=== PATIENT | female | born 1970 | race Caucasian/White ===

== ENCOUNTER 2017-09-16 17:02 | Emergency (ER) | payer OTHER ==
[~2017-09-16] VITALS: Ht 172.7 cm; Wt 101.7 kg
[2017-09-16 17:16] VITALS: TEMP 36.7; Ht 172.7 cm; Wt 101.7 kg
--- NOTE | 2017-09-16 18:54 | EMERGENCY ROOM VISIT NOTE ---
History Report prepared by Ivet: Lashaun Becker Under the Supervision of: Dr. Magno Fulton M.D. First contact with patient: 18:43 Chief Complaint: FALL Stated Complaint: CAN'T SWOLLOW,PASSING OUT,PAIN IN BACK OF HEAD History of Present Illness The patient is a 46 year old female who presents to the Emergency Room with complaints of two sudden episodes of passing out today.The patient states that when she bends down she gets an excruciating pain in the back of her head and reports that both times she passed out today she was bent over cleaning. She reports taking Tylenol for her head pain. The patient also reports having intermittent shortness of breath, fevers, and chills. The patient reports having problems swallowing anything and states that it feels like things get stuck in her throat, and that this has been going on for a month. She reports that she went to the [facility] and was told she may have a hiatal hernia and that she needs a scope down her throat, but that it is not an emergency. She reports that she was at [facility] and was told she has gastritis. She also reports having loss of appetite, weight loss due to loss of appetite, and increased fatigue. She also states that she has had shaking with her symptoms. The patient reports a history of a cholecystectomy an appendectomy, and anemia. Source of History: patient Onset: today Position: other (global) Quality: other (passing out ) Timing: other (sudden ) Associated Symptoms: + fevers, + chills, + headache (back of head pain with bending over), + SOB, + fatigue Note: additional symptoms: loss of appetite, trouble swallowing, shaking Review of Systems See HPI for pertinent positives & negatives. A total of 10 systems reviewed and were otherwise negative. Past Medical & Surgical Surgical Problems: (1) Hx of appendectomy (2) Hx of cholecystectomy Family History No pertinent family history Social History Smoking Status: Never Smoker Marital Status: Current/Historical Medications Scheduled Omeprazole (Prilosec), 20 MG PO DAILY Physical Exam Vital Signs Date Time Temp Pulse Resp B/P (MAP) Pulse Ox O2 Delivery O2 Flow Rate FiO2 09/16/17 21:33 82 18 116/70 96 Room Air 09/16/17 20:43 81 18 128/84 96 Room Air 09/16/17 19:33 78 09/16/17 19:20 72 18 133/96 98 Room Air 09/16/17 19:20 75 133/96 73 140/95 86 124/98 09/16/17 17:16 36.7 90 18 131/90 97 Room Air Physical Exam GENERAL: Patient is in no acute distress. HEENT: No acute trauma, normocephalic atraumatic, mucous membranes moist, no nasal congestion, no scleral icterus. NECK: No stridor, no adenopathy, no meningismus, trachea is midline. No mass felt. LUNGS: Clear to auscultation bilaterally, no wheeze, no rhonchi, breath sounds equal. HEART: Without murmurs gallops or rubs, regular rate and rhythm. ABDOMEN: Soft, mild tenderness in epigastrium, bowel sounds positive, no hernias , no peritonitis. EXTREMITIES: No cyanosis or edema, full range of motion of all the joints without pain or difficulty, no signs for acute trauma. NEUROLOGIC: Oriented x 3, no acute motor or sensory deficits, no focal weakness. SKIN: No rash, no jaundice, no diaphoresis. Medical Decision & Procedures ER Provider Diagnostic Interpretation: Radiology results as stated below per my review and radiologist interpretation: CT HEAD WITHOUT CONTRAST (CT) CLINICAL HISTORY: HEADACHES COMPARISON STUDY: No previous studies for comparison. TECHNIQUE: Axial CT of the brain is performed from the vertex to the skull base. IV contrast was not administered for this examination. A dose lowering technique was utilized adhering to the principles of ALARA. CT DOSE: 537.48 mGy.cm FINDINGS: No intra or extra-axial mass lesions are visualized. There is no CT evidence of acute cortical infarction. There is no evidence of midline shift. There is no acute hemorrhage. No calvarial fractures are visualized. There is no evidence of pathologic ventricular dilatation. There is no evidence of acute sinusitis IMPRESSION: No acute intracranial findings Electronically signed by: Gt Frank M.D. 09/16/2017 8:36 PM Dictated Date/Time: 09/16/2017 8:[address] OF THE CHEST WITH IV CONTRAST CLINICAL HISTORY: Difficulty swallowing. Possible mediastinal mass. COMPARISON STUDY: No previous studies for comparison. TECHNIQUE: Following the IV administration of 119 mL of Optiray-320, CT of the thorax was performed from the thoracic inlet to the lung bases. Images are reviewed in the axial, sagittal, and coronal planes. IV contrast was administered without complication. A dose lowering technique was utilized adhering to the principles of ALARA. CT DOSE: 491.55 mGy.cm FINDINGS: Thyroid: There is a 6 mm left lobe thyroid nodule. Thoracic aorta: The thoracic aorta is normal in course and caliber, noting standard 3-vessel arch anatomy. No aneurysm or dissection is seen. Pulmonary vasculature: The pulmonary trunk is normal in caliber. There are no central filling defects identified to suggest pulmonary embolus. Note that this examination was not protocoled for the evaluation of pulmonary emboli. HEART: The heart is normal in size and configuration, without pericardial effusion. Lungs and pleural spaces: There are no pleural effusions. There is no focal pulmonary consolidation. There is a 4 mm solid right upper lobe pulmonary nodule as visualized in image #72/301. There is a 2 mm calcified granuloma within the left upper lobe. There is a 3 mm. Visual solid right middle lobe pulmonary nodule as visualized in image #116/301. Mediastinum: There is no mediastinal lymphadenopathy. Marina: Clear. Axilla: Clear. Upper abdomen: There is hepatic steatosis. The gallbladder is surgically absent. Skeletal structures: There are no lytic or blastic osseous lesions. IMPRESSION: 1. No evidence of mediastinal mass 2. No evidence of pathologic adenopathy 3. Low suspicion pulmonary nodules, the largest of which measures 4 mm. In a low risk patient, no further follow-up is deemed clinically indicated. Please refer to below summary of Fleischner criteria recommendations for follow-up of incidental CT nodules (Sree Cruz, Guidelines for management of small pulmonary nodules detected on CT scans: A statement from the Fleischner Society, Radiology 237: [phone].) SOLID NODULES Solitary nodule size: <6 mm * low risk patients: no follow-up needed * high risk patients: optional CT at 12 months Solitary nodule size: 6-8 mm * low risk patients: follow-up at 6-12 months, then consider further follow-up at 18-24 months * high risk patients: initial follow-up CT at 6-12 months and then at 18-24 months if no change Solitary nodule size: >8 mm * either low or high risk patients - consider follow-up CT at 3 months, and/or CT-PET, and/or biopsy Multiple nodules size: <6 mm * low risk patients: no routine follow-up * high risk patients: optional CT at 12 months Multiple nodules size: 6-8 mm * low risk patients: follow-up at 3-6 months, then consider further follow-up at 18-24 months * high risk patients: follow-up at 3-6 months, then at 18-24 months if no change Multiple nodules size: >8 mm * low risk patients: follow-up at 3-6 months, then consider further follow-up at 18-24 months * high risk patients: follow-up at 3-6 months, then at 18-24 months if no change Note: newly detected indeterminate nodule in persons 35 years of age or older. * low risk patients: minimal or absent history of smoking and/or other known risk factors * high risk patients: history of smoking or of other known risk factors (e.g. first degree relative with lung cancer, or exposure to asbestos, radon, uranium) * if a nodule up to 8 mm is partly solid or is ground glass further follow-up is required after 24 months to exclude possible slow growing adenocarcinoma (TYRA) SUBSOLID NODULES Solitary pure ground-glass nodule * nodule size <6 mm - no CT follow-up required * nodule size >=6 mm - follow-up CT at 6-12 months, then every 2 years until 5 years Solitary part-solid nodule * nodule size <6 mm - no CT follow-up required * nodule size >=6 mm - follow-up CT at 3-6 months. If unchanged, and solid component remains <6 mm, then annual follow-up for 5 years Multiple subsolid nodules * nodule size <6 mm - follow-up CT at 3-6 months, consider further follow-up at 2 and 4 years if stable * nodule size >=6 mm - follow-up CT at 3-6 months, subsequent management based on the most suspicious nodule(s) Electronically signed by: Gt Frank M.D. 09/16/2017 8:43 PM Dictated Date/Time: 09/16/2017 8:36 PM Laboratory Results 09/16/17 19:18 Red Blood Count 4.61, Mean Corpuscular Volume 89.8, Mean Corpuscular Hemoglobin 31.0, Mean Corpuscular Hemoglobin Concent 34.5, Mean Platelet Volume 9.5, Neutrophils (%) (Auto) 50.0, Lymphocytes (%) (Auto) 37.1, Monocytes (%) (Auto) 9.6, Eosinophils (%) (Auto) 3.0, Basophils (%) (Auto) 0.3, Neutrophils # (Auto) 3.29, Lymphocytes # (Auto) 2.44, Monocytes # (Auto) 0.63, Eosinophils # (Auto) 0.20, Basophils # (Auto) 0.02 09/16/17 19:18 Test 09/16/17 19:18 White Blood Count 6.58 K/uL (4.8-10.8) Red Blood Count 4.61 M/uL (4.2-5.4) Hemoglobin 14.3 g/dL (12.0-16.0) Hematocrit 41.4 % (37-47) Mean Corpuscular Volume 89.8 fL (80-100) Mean Corpuscular Hemoglobin 31.0 pg (25-34) Mean Corpuscular Hemoglobin Concent 34.5 g/dl (32-36) Platelet Count 365 K/uL (130-400) Mean Platelet Volume 9.5 fL (7.4-10.4) Neutrophils (%) (Auto) 50.0 % Lymphocytes (%) (Auto) 37.1 % Monocytes (%) (Auto) 9.6 % Eosinophils (%) (Auto) 3.0 % Basophils (%) (Auto) 0.3 % Neutrophils # (Auto) 3.29 K/uL (1.4-6.5) Lymphocytes # (Auto) 2.44 K/uL (1.2-3.4) Monocytes # (Auto) 0.63 K/uL (0.11-0.59) Eosinophils # (Auto) 0.20 K/uL (0-0.5) Basophils # (Auto) 0.02 K/uL (0-0.2) RDW Standard Deviation 48.6 fL (36.4-46.3) RDW Coefficient of Variation 14.9 % (11.5-14.5) Immature Granulocyte % (Auto) 0.0 % Immature Granulocyte # (Auto) 0.00 K/uL (0.00-0.02) Erythrocyte Sedimentation Rate 45 mm/hr (0-21) Anion Gap 5.0 mmol/L (3-11) Est Creatinine Clear Calc Drug Dose 82.7 ml/min Estimated GFR () 72.9 Estimated GFR (Non- 62.9 BUN/Creatinine Ratio 7.4 (10-20) Calcium Level 9.0 mg/dl (8.5-10.1) Total Bilirubin 0.2 mg/dl (0.2-1) Aspartate Amino Transf (AST/SGOT) 21 U/L (15-37) Alanine Aminotransferase (ALT/SGPT) 37 U/L (12-78) Alkaline Phosphatase 109 U/L (45-117) Troponin I < 0.015 ng/ml (0-0.045) Total Protein 8.8 gm/dl (6.4-8.2) Albumin 3.6 gm/dl (3.4-5.0) Globulin 5.2 gm/dl (2.5-4.0) Albumin/Globulin Ratio 0.7 (0.9-2) Thyroid Stimulating Hormone (TSH) 1.170 uIu/ml (0.300-4.500) Free Thyroxine 0.94 ng/dl (0.80-1.60) Laboratory results reviewed by me. Medications Administered Medications (Trade) Dose Ordered Sig/Isabelle Route Start Time Stop Time Status Last Admin Dose Admin Pantoprazole Sodium (Protonix Tab) 40 mg NOW STAT PO 09/16/17 21:23 09/16/17 21:24 DC 09/16/17 21:30 40 MG ECG Per My Interpretation Indication: syncope Rate (beats per minute): 73 Rhythm: normal sinus Findings: other (no ST elevation, no PVCs) ED Course 1843: The patient was evaluated in room A11B. A complete history and physical exam was performed. 2104: The patient's orthostatic vital signs are negative. 2114: Discussed the patient's case with Dr. Houston. She gave me the number to call for endoscopy. She recommended a PPI. 2119: Reevaluated the patient. Discussed results and discharge instructions: She verbalized understanding and agreement. The patient is ready for discharge. 2122: Ordered Protonix Tab 40 mg PO. Medical Decision The patient is a 46 year old female who presents to the ED with complaints of passing out. Differential diagnoses considered include thyroid disorder, mediastinal mass, thyroid mass, esophageal stricture, anemia, electrolyte imbalance, dehydration, infection, dysrhythmia, orthostasis, and intracranial bleeding . There is no leukocytosis or worrisome anemia. Sed rate is somewhat elevated. No significant electrolyte abnormality, kidney failure or hepatitis. The patient appears to be in a euthyroid state. EKG shows a normal sinus rhythm, no acute ischemia. Cardiac enzyme testing 1 is not consistent with acute cardiac injury. Brain CT shows no acute bleed or mass-effect. Chest CT shows no mediastinal mass, no significant adenopathy. The patient received oral Protonix. I discussed her case with the GI specialist typewriter ribbon winder. The patient is going to be seen for an endoscopy. At this point, the cause for her entire presentation is unclear. She understands to return for any worsening symptoms. In regard to the syncopal spells, these were positional and likely orthostatic. I did do some orthostatic vital signs while she was here, these were negative. The patient was encouraged to stay hydrated. Medication Reconcilliation Current Medication List: was personally reviewed by me Blood Pressure Screening Patient's blood pressure: Normal blood pressure Consults Time Called: 2057 Consulting Physician: Dr. Houston Returned Call: [phone] Discussed the patient's case with Dr. Houston. She gave me the number to call for endoscopy. She recommended a PPI. Impression Primary Impression: Difficulty swallowing Additional Impressions: Headache Syncope Scribe Attestation The scribe's documentation has been prepared under my direction and personally reviewed by me in its entirety. I confirm that the note above accurately reflects all work, treatment, procedures, and medical decision making performed by me. Departure Information Dispostion Home / Self-Care Prescriptions Omeprazole (PRILOSEC) 20 Mg Capcr 20 MG PO DAILY, #30 CAP 3 Refills Prov: Magno Fulton M.D. 09/16/17 Referrals Chris Gan D.O. Forms HOME CARE DOCUMENTATION FORM, IMPORTANT VISIT INFORMATION Patient Instructions My [facility] Additional Instructions stay well hydrated start prilosec daily for the possibility of reflux call Dr. Houston's office to set up the endoscopy return if worsening all lab testing and imaging was ok today as we discussed Problem Qualifiers
[2017-09-16] MEDS ORDERED: OPTIRAY 320 IV PRN (19:00)
[2017-09-16 19:35] LABS: BASO % 0.3 %; BASO ABS # 0.02 K/uL (0-0.2); HEMATOCRIT 41.4 % (37-47); HEMOGLOBIN 14.3 g/dL (12.0-16.0); LYMPH % 37.1 %; LYMPH ABS # 2.44 K/uL (1.2-3.4); MEAN CELL VOLUME 89.8 fL (80-100); MEAN CORPUSCULAR HGB CONC 34.5 g/dl (32-36); MEAN PLATELET VOLUME 9.5 fL (7.4-10.4); MONO % 9.6 %; MONO ABS # 0.63 K/uL (0.11-0.59); NEUT ABS # 3.29 K/uL (1.4-6.5); PLATELET COUNT 365 K/uL (130-400); RED CELL DISTRIBUTION WIDTH CV 14.9 % (11.5-14.5); RED CELL DISTRIBUTION WIDTH SD 48.6 fL (36.4-46.3); WHITE BLOOD COUNT 6.58 K/uL (4.8-10.8)
[2017-09-16 19:56] LABS: BLOOD UREA NITROGEN 8 mg/dl (7-18); CREATININE 1.06 mg/dl (0.60-1.20); GLUCOSE 89 mg/dl (70-99)
[2017-09-16 19:57] LABS: ALBUMIN 3.6 gm/dl (3.4-5.0); ALT/SGPT 37 U/L (12-78); CARBON DIOXIDE 29 mmol/L (21-32); POTASSIUM 3.6 mmol/L (3.5-5.1); SODIUM 137 mmol/L (136-145)
[2017-09-16 20:07] LABS: ALKALINE PHOSPHATASE 109 U/L (45-117); AST/SGOT 21 U/L (15-37); TOTAL PROTEIN 8.8 gm/dl (6.4-8.2)
--- NOTE | 2017-09-16 20:37 | DIAGNOSTIC IMAGING REPORT ---
CT HEAD WITHOUT CONTRAST (CT) CLINICAL HISTORY: HEADACHES COMPARISON STUDY: No previous studies for comparison. TECHNIQUE: Axial CT of the brain is performed from the vertex to the skull base. IV contrast was not administered for this examination. A dose lowering technique was utilized adhering to the principles of ALARA. CT DOSE: 537.48 mGy.cm FINDINGS: No intra or extra-axial mass lesions are visualized. There is no CT evidence of acute cortical infarction. There is no evidence of midline shift. There is no acute hemorrhage. No calvarial fractures are visualized. There is no evidence of pathologic ventricular dilatation. There is no evidence of acute sinusitis IMPRESSION: No acute intracranial findings Electronically signed by: Gt Frank M.D. 09/16/2017 8:36 PM Dictated Date/Time: 09/16/2017 8:35 PM
--- NOTE | 2017-09-16 20:44 | DIAGNOSTIC IMAGING REPORT ---
CT OF THE CHEST WITH IV CONTRAST CLINICAL HISTORY: Difficulty swallowing. Possible mediastinal mass. COMPARISON STUDY: No previous studies for comparison. TECHNIQUE: Following the IV administration of 119 mL of Optiray-320, CT of the thorax was performed from the thoracic inlet to the lung bases. Images are reviewed in the axial, sagittal, and coronal planes. IV contrast was administered without complication. A dose lowering technique was utilized adhering to the principles of ALARA. CT DOSE: 491.55 mGy.cm FINDINGS: Thyroid: There is a 6 mm left lobe thyroid nodule. Thoracic aorta: The thoracic aorta is normal in course and caliber, noting standard 3-vessel arch anatomy. No aneurysm or dissection is seen. Pulmonary vasculature: The pulmonary trunk is normal in caliber. There are no central filling defects identified to suggest pulmonary embolus. Note that this examination was not protocoled for the evaluation of pulmonary emboli. HEART: The heart is normal in size and configuration, without pericardial effusion. Lungs and pleural spaces: There are no pleural effusions. There is no focal pulmonary consolidation. There is a 4 mm solid right upper lobe pulmonary nodule as visualized in image #72/301. There is a 2 mm calcified granuloma within the left upper lobe. There is a 3 mm. Visual solid right middle lobe pulmonary nodule as visualized in image #116/301. Mediastinum: There is no mediastinal lymphadenopathy. Marina: Clear. Axilla: Clear. Upper abdomen: There is hepatic steatosis. The gallbladder is surgically absent. Skeletal structures: There are no lytic or blastic osseous lesions. IMPRESSION: 1. No evidence of mediastinal mass 2. No evidence of pathologic adenopathy 3. Low suspicion pulmonary nodules, the largest of which measures 4 mm. In a low risk patient, no further follow-up is deemed clinically indicated. Please refer to below summary of Fleischner criteria recommendations for follow-up of incidental CT nodules (Sree Cruz, Guidelines for management of small pulmonary nodules detected on CT scans: A statement from the Fleischner Society, Radiology 237: [phone].) SOLID NODULES Solitary nodule size: <6 mm * low risk patients: no follow-up needed * high risk patients: optional CT at 12 months Solitary nodule size: 6-8 mm * low risk patients: follow-up at 6-12 months, then consider further follow-up at 18-24 months * high risk patients: initial follow-up CT at 6-12 months and then at 18-24 months if no change Solitary nodule size: >8 mm * either low or high risk patients - consider follow-up CT at 3 months, and/or CT-PET, and/or biopsy Multiple nodules size: <6 mm * low risk patients: no routine follow-up * high risk patients: optional CT at 12 months Multiple nodules size: 6-8 mm * low risk patients: follow-up at 3-6 months, then consider further follow-up at 18-24 months * high risk patients: follow-up at 3-6 months, then at 18-24 months if no change Multiple nodules size: >8 mm * low risk patients: follow-up at 3-6 months, then consider further follow-up at 18-24 months * high risk patients: follow-up at 3-6 months, then at 18-24 months if no change Note: newly detected indeterminate nodule in persons 35 years of age or older. * low risk patients: minimal or absent history of smoking and/or other known risk factors * high risk patients: history of smoking or of other known risk factors (e.g. first degree relative with lung cancer, or exposure to asbestos, radon, uranium) * if a nodule up to 8 mm is partly solid or is ground glass further follow-up is required after 24 months to exclude possible slow growing adenocarcinoma (TYRA) SUBSOLID NODULES Solitary pure ground-glass nodule * nodule size <6 mm - no CT follow-up required * nodule size >=6 mm - follow-up CT at 6-12 months, then every 2 years until 5 years Solitary part-solid nodule * nodule size <6 mm - no CT follow-up required * nodule size >=6 mm - follow-up CT at 3-6 months. If unchanged, and solid component remains <6 mm, then annual follow-up for 5 years Multiple subsolid nodules * nodule size <6 mm - follow-up CT at 3-6 months, consider further follow-up at 2 and 4 years if stable * nodule size >=6 mm - follow-up CT at 3-6 months, subsequent management based on the most suspicious nodule(s) Electronically signed by: Gt Frank M.D. 09/16/2017 8:43 PM Dictated Date/Time: 09/16/2017 8:36 PM
[2017-09-16] MEDS ORDERED: PANTOprazole SOD 40 MG TAB PO STA (21:23)
[2017-09-16] MEDS ORDERED: PRLSR20 PO (21:25)
[2017-09-16 21:33] VITALS: BP 116/70; PULSE 82; O2SAT 96
== END 2017-09-16 21:35 | disposition home or self-care (01) ==
LOC: C.EDB 17:04 → C.EDA 21:35
DX: R55 Syncope and collapse (principal); R13.10 Dysphagia, unspecified; R51 Headache; Z90.49 Acquired absence of other specified parts of digestive tract; D64.9 Anemia, unspecified; Z79.899 Other long term (current) drug therapy